=== PATIENT | male | born 1955 | race Caucasian/White ===

== ENCOUNTER 2019-05-01 19:52 | Emergency (ER) | payer OTHER, MEDICARE ==
[2019-05-01] MEDS ORDERED: PREDNISONE 20 MG TABLET PO ONE (22:03)
[2019-05-01] MEDS ORDERED: IPRATROPIUM/ALBUTEROL 0.5-2.5 MG/3 ML AMPUL NEB ONE (22:03)
[2019-05-01] MEDS ORDERED: DOXYCYCLINE HYCLATE 100 MG TABLET PO ONE (22:04)
--- NOTE | 2019-05-01 22:06 | RADIOLOGY REPORT (SQ) ---
EXAM DESCRIPTION: XR CHEST 1 VIEW COMPLETED DATE/TME: 05/01/2019 20:47 CLINICAL HISTORY: 63 years, Male, shortness of breath COMPARISON: None. NUMBER OF VIEWS: 1 TECHNIQUE: Single PA portable view of the chest was obtained. LIMITATIONS: None. FINDINGS: Cardiac mediastinal silhouette within normal limits of size. Post sternotomy wires and CABG surgical clips. Tortuous thoracic aorta. Slightly hazy opacification of the RIGHT perihilar lower lobe may be secondary to subsegmental atelectasis, scarring or developing consolidation. The lungs appear to be clear without discrete focal opacity, pneumothorax or large pleural effusion. Trace pleural effusion cannot be excluded. The visualized bones reveal degenerative change. IMPRESSION: Slightly hazy opacification of the RIGHT perihilar lower lobe may be secondary to subsegmental atelectasis, scarring or developing consolidation. Please correlate with patient clinical findings and consider follow-up for resolution. copyright 2010 [employer]- All Rights Reserved
--- NOTE | 2019-05-01 22:10 | ER Document Report ---
HPI - HPI Patient complains to provider of: wheezing, med refill Time Seen by Provider: 05/01/19 21:58 Onset: Last week Pain Level: Denies Context: Patient presents requesting a med refill for his asthma inhaler. Patient states that he is moved here recently and [facility]. Patient denies any chest pain or shortness of breath. Patient states that his asthma has been flaring up and he does not have any medication. Patient denies any fever. Patient is not wanting to have any lab work or testing performed here tonight. Associated Symptoms: Nonproductive cough. denies: Chest pain, Fever Exacerbated by: Denies Relieved by: Denies Similar symptoms previously: Yes Recently seen / treated by doctor: No - ROS ROS below otherwise negative: Yes Systems Reviewed and Negative: Yes All other systems reviewed and negative - CONSTITUTIONAL Constitutional: DENIES: Fever - EENT EENT: DENIES: Sore Throat, Congestion - NEURO Neurology: DENIES: Headache - CARDIOVASCULAR Cardiovascular: DENIES: Chest pain - RESPIRATORY Respiratory: REPORTS: Coughing - GASTROINTESTINAL Gastrointestinal: DENIES: Abdominal Pain, Nausea, Patient vomiting - MUSCULOSKELETAL Musculoskeletal: DENIES: Back Pain - DERM Skin Color: Normal Skin Problems: None Past Medical History - General Information source: Patient - Social History Smoking Status: Former Smoker Frequency of alcohol use: None Drug Abuse: None Occupation: none Lives with: Family Family History: Reviewed & Not Pertinent - Past Medical History Cardiac Medical History: Reports: Hx Coronary Artery Disease, Hx Hypercholesterolemia, Hx Hypertension Pulmonary Medical History: Reports: Hx Asthma, Hx COPD Past Surgical History: Reports: Hx Cardiac Catheterization Vertical Provider Document - CONSTITUTIONAL Agree With Documented VS: Yes Exam Limitations: No Limitations General Appearance: WD/WN, No Apparent Distress - INFECTION CONTROL TRAVEL OUTSIDE OF THE [place] IN LAST 30 DAYS: No - HEENT HEENT: Atraumatic, Normal ENT Exam, Normocephalic - NECK Neck: Normal Inspection, Supple. negative: Lymphadenopathy-Left, Lymphadenopathy-Right - RESPIRATORY Respiratory: No Respiratory Distress, Wheezing - CARDIOVASCULAR Cardiovascular: Regular Rate, Regular Rhythm, No Murmur. negative: Tachycardia - BACK Back: Normal Inspection - MUSCULOSKELETAL/EXTREMETIES Musculoskeletal/Extremeties: MAEW, FROM - NEURO Level of Consciousness: Awake, Alert, Appropriate Motor/Sensory: No Motor Deficit - DERM Integumentary: Warm, Dry, No Rash Course - Re-evaluation Re-evalutation: 05/01/19 22:09 Patient states that he is only here for refill of his medications. Patient with bilateral wheezing. Offered patient additional evaluation including labs and x- ray. Patient declined stating he only wants a refill of his medicine. Patient is agreeable to stay for nebulizer treatments here. 05/01/19 23:20 Patient with decreased wheezing bilaterally with improved air movement. Patient nontoxic in appearance at this time. Patient reports feeling much better. Patient advised of x-ray findings and concern about possible early developing pneumonia. Patient will be placed on doxycycline and good return precautions were discussed. Patient is agreeable with this plan of care at this time. - Vital Signs Vital signs: Temp Pulse Resp BP Pulse Ox 98.0 F 84 18 133/89 H 95 05/01/19 20:11 05/01/19 20:11 05/01/19 20:11 05/01/19 20:11 05/01/19 20:11 - Diagnostic Test Radiology reviewed: Image reviewed, Reports reviewed Discharge - Discharge Clinical Impression: COPD exacerbation Condition: Good Disposition: HOME, SELF-CARE Instructions: Chronic Obstructive Lung Disease ([facility]) Additional Instructions: Return immediately for any new or worsening symptoms: Worsening shortness of breath, fever, chest pain, lack of improvement, or any concerning symptoms Followup with your primary care provider, call tomorrow to make a followup appointment INHALED BRONCHODILATORS: You have received a treatment of and/or prescription for an inhaled bronchodilator -- a medication which stimulates the airways in the lung to dilate. This improves the flow of air in asthma, bronchitis, and emphysema. These medicines have some similarity to adrenaline, and can cause similar side effects: shakiness, racing heart, and a sense of nervousness. These side effects decrease with time. Contact your doctor if these side effects are severe. Do not over-use the medicine. Too-frequent use of the inhaler may make it ineffective. Call your doctor if the inhaler is not controlling your symptoms at the prescribed doses. STEROID MEDICATION: You have been given an injection of or oral medicine of the cortisone/steroid class. This medication is used to control inflammation or allergy. Adonis t is usually only given for a short period of time, until the acute process subsides. There are usually no side effects from short-term use of cortisone-like medications. Some persons feel an increased sense of well-being and are not sleepy at bedtime. Long-term use of cortisone medications is best avoided, unless required for a severe condition. If your condition does not remit, or relapses after the course of corticosteroid medication, you should consult your physician. ANTIBIOTIC THERAPY: You have been given an antibiotic prescription. It's important that you take all the medication, unless instructed otherwise by your physician. Failure to complete the entire course can result in relapse of your condition. Common side effects of antibiotics include nausea, intestinal cramping, or diarrhea. Women may develop vaginal yeast infections, and babies can get yeast (thrush) in the mouth following the use of antibiotics. Contact your physician if you develop significant side effects from this medication. Allergy to this antibiotic can result in hives, wheezing, faintness, or itching. If symptoms of allergy occur, stop the medication and call your doctor. DOXYCYCLINE: Doxycycline (Vibramycin, Doryx) is an antibiotic of the tetracycline family. This type of drug is useful for infections of the respiratory tract and genital tract, and is sometimes used for intestinal infections. Unlike most tetracyclines, doxycycline can be taken with food. It is longer acting, and (usually) less prone to side effects than regular tetracycline. Tetracycline antibiotics can stain immature teeth and SHOULD NOT BE TAKEN BY CHILDREN, NURSING MOTHERS, OR WOMEN. Tetracyclines can make you more prone to sunburn. Abdominal cramping, nausea, and diarrhea are occasional side effects. Women may experience vaginal yeast infections. Call the doctor at once if you develop hives, itching, shortness of breath, or lightheadedness. USE OF ACETAMINOPHEN (Tylenol): Acetaminophen may be taken for pain relief or fever control. It's much safer than aspirin, offering a wider range of "safe" dosages. It is safe during . Some brand names are Tylenol, Panadol, Datril, Anacin 3, Tempra, and Liquiprin. Acetaminophen can be repeated every four hours. The following are maximum recommended dosages: >89 pounds or adults 650 mg to 900 mg Acetaminophen can be repeated every four hours. Maximum dose not to exceed 4000 mg a day. FOLLOW-UP CARE: If you have been referred to a physician for follow-up care, call the physicians office for an appointment as you were instructed or within the next two days. If you experience worsening or a significant change in your symptoms, notify the physician immediately or return to the Emergency Department at any time for re-evaluation. Prescriptions: Albuterol Sulfate [Ventolin 0.083% Neb 2.5 mg/3 ml Ampul] 1 vial NEB Q4 PRN #30 vial PRN Reason: Doxycycline Hyclate 100 mg PO BID #20 capsule Prednisone [Deltasone 20 mg Tablet] 2 tab PO DAILY 5 Days tablet Referrals: [facility] [Provider Group] - Follow up as needed
[2019-05-01] MEDS ORDERED: ALBUTEROL SULFATE HFA (90 MCG/PUFF) 8 GM MDI (1 MDI/ER DISP) IH ONE (22:26)
[2019-05-01] MEDS: ALBUTEROL SULFATE 0.083% NEB 2.5 MG/3 ML AMPUL NEB SCH ×2 (22:42→23:05)
[2019-05-01 23:34] VITALS: BP 134/87
== END 2019-05-01 23:34 | disposition home or self-care (01) ==
LOC: EDBD → ER 19:52
DX: J44.1 Chronic obstructive pulmonary disease with (acute) exacerbation (principal); R05 Cough; J02.9 Acute pharyngitis, unspecified; R09.81 Nasal congestion; Z87.891 Personal history of nicotine dependence; I25.10 Atherosclerotic heart disease of native coronary artery without angina pectoris; I10 Essential (primary) hypertension
CPT/HCPCS: 94640; 99282; 71045; J7512; J3490; J7620

== ENCOUNTER 2020-09-23 16:54 | Observation (INO) | payer OTHER, MEDICARE ==
--- NOTE | 2020-09-23 17:11 | ER Document Report ---
ED Medical Screen (RME) - General Chief Complaint: Altered Mental Status Stated Complaint: SHOULDER PAIN Time Seen by Provider: 09/23/20 16:59 Primary Care Provider: MARICARMEN,ERIK [Primary Care Provider] - Follow up as needed Mode of Arrival: Ambulatory Information source: Patient, Relative Notes: Patient presents with family member states that patient has not been acting himself and that his gait has been off since around 3 PM today. Patient had difficulty describing exactly what the change in rotation reports. He does state the patient indicated that later patient was attempting to reach for an object that was normal on the floor. Patient complains of generalized fatigue and sore throat. Patient without any headache, chest pain or fever. No recent illness. Patient has a history of asthma, MS with bypass, asthma and COPD. During the course of the triage, family member states that patient has started to act normal again and gait seems to be improving at this time. I have greeted and performed a rapid initial assessment of this patient. A comprehensive ED assessment and evaluation of the patient, analysis of test results and completion of the medical decision making process will be conducted by additional ED providers. TRAVEL OUTSIDE OF THE [place] IN LAST 30 DAYS: No - Related Data Allergies/Adverse Reactions: No Known Drug Allergies Allergy (Verified 05/01/19 19:59) Past Medical History - Past Medical History Cardiac Medical History: Reports: Hx Coronary Artery Disease, Hx Hypercholesterolemia, Hx Hypertension Pulmonary Medical History: Reports: Hx Asthma, Hx COPD Renal/ Medical History: Denies: Hx Peritoneal Dialysis Past Surgical History: Reports: Hx Cardiac Catheterization, Hx Open Heart Surgery, Hx Orthopedic Surgery Physical Exam - Vital signs Vitals: Temp Pulse Resp BP Pulse Ox 97.6 F 101 H 24 H 147/94 H 93 09/23/20 17:03 09/23/20 17:03 09/23/20 17:03 09/23/20 17:03 09/23/20 17:03 - General General appearance: Alert - Neurological Orientation: AAOx4 Meme Coma Scale Eye Opening: Spontaneous [place] Coma Scale Verbal: Oriented Meme Coma Scale Motor: Obeys Commands Meme Coma Scale Total: 15 Cranial nerves: No: Facial palsy Motor strength normal: LUE, RUE, LLE, RLE Course - Vital Signs Vital signs: Temp Pulse Resp BP Pulse Ox 97.6 F 101 H 24 H 147/94 H 93 09/23/20 17:03 09/23/20 17:03 09/23/20 17:03 09/23/20 17:03 09/23/20 17:03 Doctor's Discharge - Discharge [facility] - Follow up as needed
--- NOTE | 2020-09-23 17:36 | RADIOLOGY REPORT (SQ) ---
EXAM DESCRIPTION: CT HEAD WITHOUT IMAGES COMPLETED DATE/TIME: 09/23/2020 5:23 pm REASON FOR STUDY: AMS, gait change COMPARISON: None. TECHNIQUE: Axial images acquired through the brain without intravenous contrast. Images reviewed wi th bone, brain and subdural windows. Additional sagittal and coronal reconstructions were generated. Images stored on PACS. All CT scanners at this facility use dose modulation, iterative reconstruction, and/or weight based d osing when appropriate to reduce radiation dose to as low as reasonably achievable (ALARA). [facility]: Dose Right [facility]: CareDose [facility]: Dose Right [facility]: Teradose 4D [facility]: [employer] RADIATION DOSE: CT Rad equipment meets quality standard of care and radiation dose reduction techniq ues were employed. CTDIvol: 53.2 mGy. DLP: 1097 mGy-cm. mGy. LIMITATIONS: None. FINDINGS: VENTRICLES: Normal size and contour. CEREBRUM: No masses. No hemorrhage. No midline shift. No evidence for acute infarction. Areas of l ow density in the white matter most likely chronic small vessel ischemic changes. CEREBELLUM: No masses. No hemorrhage. No alteration of density. No evidence for acute infarction. EXTRAAXIAL SPACES: No fluid collections. No masses. ORBITS AND GLOBE: No intra- or extraconal masses. Normal contour of globe without masses. CALVARIUM: No fracture. PARANASAL SINUSES: Small mucous retention cyst in the left maxillary sinus. SOFT TISSUES: No mass or hematoma. OTHER: No other significant finding. IMPRESSION: Chronic microvascular ischemia with no acute intracranial imaging finding. Mild left ma xillary sinus disease. EVIDENCE OF ACUTE STROKE: NO. COMMENT: Quality ID # [id number]: Final reports with documentation of one or more dose reduction techniques (e.g., Automated exposure control, adjustment of the mA and/or kV according to patient size, use of iterative reconstruction technique) TECHNICAL DOCUMENTATION: JOB ID: [id number] 2010 [employer] All Rights Reserved Reading location - IP/workstation name: [email or web address]
--- NOTE | 2020-09-23 17:37 | RADIOLOGY REPORT (SQ) ---
EXAM DESCRIPTION: CHEST SINGLE VIEW IMAGES COMPLETED DATE/TIME: 09/23/2020 5:22 pm REASON FOR STUDY: AMS COMPARISON: 05/01/2019 EXAM PARAMETERS: NUMBER OF VIEWS: One view. TECHNIQUE: Single frontal radiographic view of the chest acquired. RADIATION DOSE: NA LIMITATIONS: None. FINDINGS: LUNGS AND PLEURA: No opacities, masses or pneumothorax. No pleural effusion. MEDIASTINUM AND HILAR STRUCTURES: No masses. Contour normal. HEART AND VASCULAR STRUCTURES: Heart normal in size. Normal vasculature. BONES: No acute findings. HARDWARE: Sternotomy wires. Surgical clips. OTHER: No other significant finding. IMPRESSION: NO ACUTE RADIOGRAPHIC FINDING IN THE CHEST. TECHNICAL DOCUMENTATION: JOB ID: [id number] 2010 [employer]- All Rights Reserved Reading location - IP/workstation name: [email or web address]
[2020-09-23 17:41] LABS: ABSOLUTE EOSINOPHILS # (AUTO) 0.3 10^3/uL (0.0-0.6); ABSOLUTE LYMPHOCYTES (AUTO) 1.5 10^3/uL (0.5-4.7); ABSOLUTE MONOCYTES (AUTO) 0.6 10^3/uL (0.1-1.4); ABSOLUTE NEUT (AUTO) 2.8 10^3/uL (1.7-8.2); BASOPHILS % (AUTO) 0.9 % (0-2); EOSINOPHILS % (AUTO) 5.2 % (0-6); HEMATOCRIT 42.6 % (37.9-51.0); HEMOGLOBIN 14.5 g/dL (13.5-17.0); LYMPHOCYTES % (AUTO) 28.3 % (13-45); MEAN CORPUSCULAR HEMOGLOBIN 30.3 pg (27.0-33.4); MEAN CORPUSCULAR HGB CONC 34.1 g/dL (32.0-36.0); MEAN CORPUSCULAR VOLUME 89 fl (80-97); MONOCYTES % (AUTO) 11.2 % (3-13); PLATELET COUNT 196 10^3/uL (150-450); RED BLOOD COUNT 4.79 10^6/uL (4.35-5.55); RED CELL DISTRIBUTION WIDTH 13.6 % (11.5-14.0); SEGMENTED NEUTROPHILS % (AUTO) 54.4 % (42-78); TOTAL CELLS COUNTED % (AUTO) 100 %; WHITE BLOOD COUNT 5.2 10^3/uL (4.0-10.5)
[2020-09-23 17:45] LABS: PARTIAL THROMBOPLASTIN TIME 26.7 SEC (23.5-35.8); PROTHROMBIN TIME 12.4 SEC (11.4-15.4)
[2020-09-23 18:00] LABS: ALBUMIN 4.5 g/dL (3.5-5.0); ALKALINE PHOSPHATASE 80 U/L (38-126); ANION GAP 10 (5-19); ASPARTATE AMINO TRANSFERASE 27 U/L (17-59); BILIRUBIN,DIRECT 0.2 mg/dL (0.0-0.4); BILIRUBIN,TOTAL 0.8 mg/dL (0.2-1.3); BLOOD UREA NITROGEN 14 mg/dL (7-20); CALCIUM 9.4 mg/dL (8.4-10.2); CARBON DIOXIDE 27 mmol/L (22-30); CHLORIDE 105 mmol/L (98-107); CREATINE KINASE 150 U/L (55-170); GLUCOSE 101 mg/dL (75-110); POTASSIUM 4.1 mmol/L (3.6-5.0); TOTAL PROTEIN 7.6 g/dL (6.3-8.2)
[2020-09-23 18:11] LABS: CREATINE KINASE MB 6.45 ng/mL (<4.55)
[2020-09-23 18:12] LABS: TROPONIN I < 0.012 ng/mL
[2020-09-23 18:40] LABS: APPEARANCE,URINE CLEAR; BILIRUBIN,URINE NEGATIVE (NEGATIVE); COLOR,URINE YELLOW; GLUCOSE, URINE NEGATIVE (NEGATIVE); KETONES,URINE NEGATIVE (NEGATIVE); LEUKOCYTE ESTERASE,URINE NEGATIVE (NEGATIVE); NITRITE,URINE NEGATIVE (NEGATIVE); PROTEIN,URINE NEGATIVE (NEGATIVE); URINE SPECIFIC GRAVITY 1.015; UROBILINOGEN,URINE NEGATIVE mg/dL (<2.0)
--- NOTE | 2020-09-23 19:16 | ER Document Report ---
ED Neuro Symptoms/Deficit - General Chief Complaint: S/S of Possible Stroke Stated Complaint: SHOULDER PAIN Time Seen by Provider: 09/23/20 16:59 Mode of Arrival: Ambulatory TRAVEL OUTSIDE OF THE [place] IN LAST 30 DAYS: No - HPI Notes: Patient is a 65-year-old male who presents with altered mental status. History is mostly provided by the patient's son and the patient. Patient states he felt fine yesterday. He woke up this morning and had pain to his right shoulder so he took some [id number] medications. Patient's called the son in the room around 3 PM and stated that the patient was not acting normally. Exact time of onset is not known but was before 3 PM. Son states he had an abnormal gait. He was also reaching for something on the floor that was not there. He was having trouble holding a conversation. Symptoms resolved when patient arrived to the ER. He is no longer having any shoulder pain either. Patient is alert and oriented x3 and ambulatory on my evaluation. NIH is 0. Patient is not a TPA candidate due to low NIH and resolving symptoms. - Related Data Allergies/Adverse Reactions: No Known Drug Allergies Allergy (Verified 09/23/20 17:15) Home Medications: coreg, Nitro, atorovastatin Past Medical History - General Information source: Patient, Relative - Social History Smoking Status: Former Smoker Drug Abuse: Marijuana Family History: Reviewed & Not Pertinent Patient has homicidal ideation: No - Past Medical History Cardiac Medical History: Reports: Hx Coronary Artery Disease, Hx Hypercholesterolemia, Hx Hypertension Pulmonary Medical History: Reports: Hx Asthma, Hx COPD Renal/ Medical History: Denies: Hx Peritoneal Dialysis Past Surgical History: Reports: Hx Cardiac Catheterization, Hx Open Heart Surgery, Hx Orthopedic Surgery Review of Systems - Review of Systems Notes: CONSTITUTIONAL: No fever, fatigue or weight loss. SKIN: No rash. HENT: No congestion EYES: No recent vision problems or eye pain. CARDIOVASCULAR: No chest pain or edema. RESPIRATORY: No cough, shortness of breath, congestion, or wheezing. GASTROINTESTINAL: No abdominal pain, nausea, vomiting, bloody stools or diarrhea. MUSCULOSKELETAL: Positive for right shoulder pain that resolved. NEUROLOGIC: No seizures. No focal weakness or sensory changes. Positive for confusion and gait disturbance which resolved. Positive for chronic headaches. HEMATOLOGIC: No unusual bruising or bleeding. PSYCHIATRIC: No depression or anxiety. Physical Exam - Vital signs Vitals: Pulse Resp BP Pulse Ox 87 18 147/94 H 90 L 09/23/20 16:55 09/23/20 16:55 09/23/20 16:55 09/23/20 16:55 - General General appearance: Appears well, Alert Notes: VITAL SIGNS: Within normal limits. GENERAL: No acute distress, non-toxic appearance. HEAD: Normal with no signs of head trauma. EYES: EOMI, conjunctiva normal, no discharge. EARS: Hearing grossly intact. NOSE: Normal. NECK: Normal range of motion, no tenderness, supple, no lymphadenopathy, No adenopathy, no JVD. CHEST: Clear breath sounds bilaterally. No wheezes, rales, or rhonchi. CARDIAC: Regular rate and rhythm. S1 and S2, without murmurs, gallops, or rubs. VASCULAR: No Edema. Peripheral pulses normal in upper extremities. ABDOMEN: Normal and soft MUSCULOSKELETAL: Good range of motion of all major joints. Extremities without clubbing, cyanosis or edema. NEUROLOGICAL: Alert and oriented x 3. No focal sensory or strength deficits. Speech normal. Follows commands appropriately. Gait is normal. NIH is 0. PSYCHIATRIC: Normal Affect, judgement and mood. SKIN: Normal appearance with no rashes or lesions. Course - Re-evaluation Re-evalutation: 09/23/20 19:[address] head was unremarkable. Lab work was also reviewed. Possible patient could have had a TIA. I discussed possibility of admission for MRI and further work-up and they are in agreement. I also discussed with the hospitalist. 09/23/20 21:23 - Vital Signs Vital signs: Temp Pulse Resp BP Pulse Ox 97.6 F 83 20 140/89 H 91 L 09/23/20 17:03 09/23/20 17:08 09/23/20 20:01 09/23/20 20:01 09/23/20 20:01 - Laboratory Results Result Diagrams: 09/23/20 17:30 09/23/20 17:30 Laboratory Results Interpreted: 09/23/20 17:30 CK-MB (CK-2) 6.45 H Critical Laboratory Results Reviewed: No Critical Results - Radiology Results Critical Radiology Results Reviewed: No Critical Results - EKG Interpretation by Me EKG shows normal: Sinus rhythm Rate: Normal Rhythm: NSR When compared to previous EKG there are: Previous EKG unavailable Additional EKG results interpreted by me: 09/23/20 20:07 Sinus rhythm at a rate of 93. QTc 473. PVCs present. No acute ST changes. No previous EKG available for comparison. Discharge - Discharge Clinical Impression: Stroke-like symptoms Altered mental status Qualifiers: Altered mental status type: unspecified Qualified Code(s): R41.82 - Altered mental status, unspecified Condition: Stable Disposition: ADMITTED OBSERVATION Admitting Provider: [facility] Admitted: [facility]
[2020-09-23] MEDS ORDERED: ACETAMINOPHEN 325 MG TABLET PO PRN (20:46)
[2020-09-23] MEDS ORDERED: ALBUTEROL SULFATE 0.083% NEB 2.5 MG/3 ML AMPUL NEB PRN (20:46)
--- NOTE | 2020-09-23 21:25 | ER Document Report ---
ED NIH Stroke Scale - NIH Stroke Scale *: 1. NIH scale should be completed with appropriate accompanying assessment tools. *: 2. The NIH should reflect what the patient is capable of doing and should not be coached by the clinician. 1a. Level of Consciousness: 0=Alert;keenly responsive -: 1=Drowsy -: 2=Obtunded -: 3=Coma/unresponsive or reflex to noxious stimuli. 1a. Responses: 0 1b. Orientation Questions: a. What month is it? -: b. How old are you? -: 0=Answers both questions correctly. -: 1=Answers one question correctly or patient is intubated or has orotracheal trauma. -: 2=Answers neither question correctly. 1b. Responses: 0 1c. Response to commands: a. Open and close eyes? -: b. Director Of Mechanical Engineering and release hand? -: Credit is given despite weakness. Demonstration of task is permitted. Substitute command if hands cannot be used. -: 0=Performs both tasks correctly -: 1=Performs one task correctly -: 2=Performs neither task correctly 1c. Responses: 0 2. Gaze: Establish eye contact and instruct patient to "Follow my finger" -: 0=Normal -: 1=Partial gaze palsy. Gaze is abnormal in one or both eyes, but where forced deviation or total gaze paresis is not present. -: 2=Forced deviation or total gaze paresis. 2. Responses: 0 3. Visual Benjamin: Sees fingers in all four quadrants. -: 0=No visual loss. -: 1=Partial hemianopsia. -: 2=Complete hemianopsia. -: 3=Bilateral hemianopsia (including Cortical blindness) 3. Responses: 0 4. Facial Movement: Instruct patient to: -: a. Show me your teeth -: b. Raise your eyebrows -: c. Close your eyes -: d. Smile -: 0=Normal symmetrical movement -: 1=Minor paralysis (flattened nasolabial fold, asymmetry on smiling). -: 2=Partial paralysis (total or near total paralysis of lower face). -: 3=Complete paralysis of upper and lower face 4. Responses: 0 5. Motor functions (left arm): Alternate sides and extend each arm with palms down (90 degrees if sitting or 45 degrees for supine). -: 0=No drift;limb holds for full 10 seconds. -: 1=Drift; limb holds but drifts down before full 10 seconds, but does not hit bed. -: 2=Some effort against gravity; limb cannot get to or maintain position. -: 3=No effort against gravity; limb falls. -: 4=No movement. -: UN=Amputation, joint fusion, explain in comments. 5. Responses (left arm): 0 5. Motor Functions (right arm): Alternate sides and extend each arm with palms down (90 degrees if sitting or 45 degrees for supine). -: 0=No drift;limb holds for full 10 seconds. -: 1=Drift; limb holds but drifts down before full 10 seconds, but does not hit bed. -: 2=Some effort against gravity; limb cannot get to or maintain position. -: 3=No effort against gravity; limb falls. -: 4=No movement. -: UN=Amputation, joint fusion, explain in comments. 5. Responses (right arm): 0 6. Motor Functions (left leg): With patient lying supine, alternate sides and extend each leg (30 degrees always while supine). -: 0=No drift, leg holds position for full 5 seconds -: 1=Drift; leg falls before full 5 seconds but does not hit bed. -: 2=Some effort against gravity, leg falls to bed but some effort against gravity. -: 3=No effort against gravity, leg falls to bed immediately. -: 4=No movement. -: UN=Amputation, joint fusion; explain in comments. 6. Responses (left leg): 0 6. Motor Functions (right leg): With patient lying supine, alternate sides and extend each leg (30 degrees always while supine). -: 0=No drift, leg holds position for full 5 seconds -: 1=Drift; leg falls before full 5 seconds but does not hit bed. -: 2=Some effort against gravity, leg falls to bed but some effort against gravity. -: 3=No effort against gravity, leg falls to bed immediately. -: 4=No movement. -: UN=Amputation, joint fusion; explain in comments. 6. Responses (right leg): 0 7. Limb Ataxia: With eyes open instruct patient to: -: a. "Touch your finger to your nose". -: b. "Touch your heel to your gresham" -: 0=Absent -: 1=Present in one limb. -: 2=Present in two limbs. -: UN=Amputation or joint fusion; explain in comments. 7. Responses: 0 8. Sensory: Test sensation using pinprick or noxious stimuli. Test as many body parts as possible. -: 0=Normal;no sensory loss -: 1=Mile to moderate sensory loss (patient feels pin prick but is less sharp on affected side). -: 2=Severe or total sensory loss. 8. Responses: 0 9. Best Language: Instruct patient to: -: a. "Describe what you see in this picture." -: b. "Name the items in this picture." -: c. "Read these sentences." -: 0=No aphasia, normal -: 1=Mild to moderate aphasia. -: 2=Severe aphasia -: 3=Mute, global aphasia, no usable speech or auditory comprehension. 9. Responses: 0 10. Articulation, Dysarthia: Instruct patient to: -: "Read these words" or "Repeat these words" -: 0=Normal -: 1=Mild to moderate; patient may slur some words but can be understood without difficulty. -: 2=Severe; patients speech so slurred as to be unintelligible in the absence of dysphasia. -: UN=Intubated or other physical barrier, explain in comments. 10. Responses: 0 11. Extinction or inattention: 0=No abnormality -: 1= Visual, tactile, auditory, spatial, or personal inattention or extinction to bilateral simulation in one or the sensory modalities. -: 2=Profound jeanine-inattention or jeanine-inattention to more than one modality; does not recognize own hand. 11. Responses: 0 Total Score: 0
[2020-09-23] MEDS ORDERED: TRAMADOL HCL 50 MG TABLET PO ONE (21:45)
[2020-09-23] MEDS ORDERED: ATORVASTATIN CALCIUM 80 MG TABLET PO SCH (22:00)
--- NOTE | 2020-09-23 22:40 | RADIOLOGY REPORT (SQ) ---
MRI of the brain without intravenous contrast: 09/23/2020 9:36 PM [employer] INDICATION: 65-year-old patient with TIA, concern for stroke COMPARISON: CT the head from 09/23/2020 TECHNIQUE: Sagittal T1; axial diffusion, ADC, T2, FLAIR, gradient echo images through the brain were obtained without intravenous contrast administered. FINDINGS: There is mild prominence of the cerebral sulci and ventricles, suggestive of cerebral atrophy. Mild nonspecific periventricular hyperintense signal is also seen, which may reflect chronic microvascular ischemia. No obvious restricted diffusion is seen. The cervicomedullary junction is unremarkable. The visualized orbits also appear unremarkable. No extra-axial fluid collection is seen. No midline shift or mass effect is seen. The visualized vascular flow voids appear normal. The cerebellopontine angles appear normal. No abnormal signal is seen to suggest acute hemorrhage. There are scattered punctate areas of increased susceptibility, most pronounced within the occipital and parietal lobes. These are seen throughout the subcortical white matter. The hernandez-white matter differentiation is normal. No focal signal abnormality is seen. There is minimal mucoperiosteal thickening of the ethmoid sinuses. IMPRESSION: 1. No acute intracranial process is seen. 2. Mild cerebral atrophy and periventricular white matter changes are seen. 3. There are punctate areas of scattered susceptibility. This can be seen with amyloid angiopathy, less likely cavernous malformations or trauma.
--- NOTE | 2020-09-23 23:51 | PDOC H&P ---
History of Present Illness Admission Date/PCP: 09/23/20 20:34 HARDEEP LUCAS PA-C Patient complains of: Abnormal speech and confusion History of Present Illness: JOSE MERA is a 65 year old male The patient does not have any documented history of CVA or TIA. About a year or year and a half ago the patient had a similar episode what happened today but at that time he did not seek medical attention. He was doing well till around noon when his family noticed his speech became abnormal and he is not acting right. He seemed to be confused with significant speech difficulty. He was able to walk. Eventually came to the emergency department. His symptoms were rapidly improving and by the time he was evaluated they almost completely resolved. The diagnosis was unclear, he was not a candidate for thrombolytic treatment. His work-up in the emergency department was essentially unremarkable. When I arrived to see him he was fully alert, oriented. He appeared very slightly confused which can be even a normal variant. His speech was normal. According to his son he was still not completely back to his baseline. Denies any headache. His only complaint was his chronic back pain. He was cooperative, pleasant. Past Medical History Cardiac Medical History: Reports: Coronary Artery Disease, Hyperlipidema, Hypertension Pulmonary Medical History: Reports: Asthma, Chronic Obstructive Pulmonary Disease (COPD) Endocrine Medical History: Denies: Diabetes Mellitus Type 2 Malignancy Medical History: Reports: None GI Medical History: Reports: Other - Has a left inguinal hernia for years. Psychiatric Medical History: Denies: None, Alcohol Dependency, Attention Deficit Hyperactivity Disorder, Bipolar Disorder, Dementia, Depression, General Anxiety Disorder, Personality Disorder, Post Traumatic Stress Disorder, Schizoaffective Disorder, Substance Abuse, Tobacco Dependency, Other Infectious Medical History: Reports: None Past Surgical History Past Surgical History: Reports: Cardiac Catheterization, Coronary Artery Bypass Graft, Orthopedic Surgery Social History Lives with: Family Smoking Status: Former Smoker Family History Family History: CAD Parental Family History Reviewed: Yes Children Family History Reviewed: Yes Sibling(s) Family History Reviewed.: Yes Medication/Allergy Allergies/Adverse Reactions: No Known Drug Allergies Allergy (Verified 09/23/20 17:15) Review of Systems Constitutional: ABSENT: chills, fever(s), headache(s), weight gain, weight loss Eyes: ABSENT: visual disturbances Ears: ABSENT: hearing changes Cardiovascular: ABSENT: chest pain, dyspnea on exertion, edema, orthropnea, palpitations Respiratory: ABSENT: cough, hemoptysis Gastrointestinal: PRESENT: other - Chronic left inguinal hernia. ABSENT: abdominal pain, constipation, diarrhea, hematemesis, hematochezia, nausea, vomiting Genitourinary: ABSENT: difficulty urinating, dysuria Musculoskeletal: PRESENT: back pain Neurological: PRESENT: abnormal speech, confusion Physical Exam Vital Signs: Temp Pulse Resp BP Pulse Ox 97.6 F 80 26 H 137/98 H 99 09/23/20 17:03 09/23/20 22:00 09/23/20 22:19 09/23/20 22:00 09/23/20 22:00 Intake & Output 09/22/20 09/23/20 09/24/20 06:59 06:59 06:59 Weight 88.1 kg General appearance: PRESENT: no acute distress Head exam: PRESENT: atraumatic Eye exam: PRESENT: conjunctiva pink, EOMI, PERRLA. ABSENT: scleral icterus Ear exam: PRESENT: normal external ear exam Mouth exam: PRESENT: moist, tongue midline Neck exam: ABSENT: carotid bruit, JVD, lymphadenopathy, thyromegaly Respiratory exam: PRESENT: clear to auscultation lyn. ABSENT: rales, rhonchi, wheezes Cardiovascular exam: PRESENT: RRR. ABSENT: diastolic murmur, rubs, systolic murmur Pulses: PRESENT: normal dorsalis pedis pul GI/Abdominal exam: PRESENT: normal bowel sounds, soft, tenderness - Left in guinal hernia, reducible with minimal tenderness.. ABSENT: distended, guarding, mass, organolmegaly, rebound Rectal exam: PRESENT: deferred Extremities exam: PRESENT: full ROM. ABSENT: calf tenderness, clubbing, pedal edema Neurological exam: PRESENT: alert, oriented to person, oriented to place, oriented to time, oriented to situation, other - Very slight confusion, hard to tell. Cooperative. Able to engage in any conversation. Able to walk without any help. Speech is clear. Normal coordination. No focal weakness. Normal sensation. Skin exam: PRESENT: dry, intact, warm. ABSENT: cyanosis, rash Results Laboratory Results: 09/23/20 17:30 09/23/20 17:30 09/23/20 09/23/20 09/23/20 17:30 17:30 18:27 WBC 5.2 RBC 4.79 Hgb 14.5 Hct 42.6 MCV 89 MCH 30.3 MCHC 34.1 RDW 13.6 Plt Count 196 Seg Neutrophils % 54.4 Sodium 141.5 Potassium 4.1 Chloride 105 Carbon Dioxide 27 Anion Gap 10 BUN 14 Creatinine 0.90 Est GFR ( Amer) > 60 Glucose 101 Calcium 9.4 Total Bilirubin 0.8 AST 27 Alkaline Phosphatase 80 Total Protein 7.6 Albumin 4.5 Urine Color YELLOW Urine Appearance CLEAR Urine pH 6.0 Ur Specific [place] 1.015 Urine Protein NEGATIVE Urine Glucose (UA) NEGATIVE Urine Ketones NEGATIVE Urine Blood NEGATIVE Urine Nitrite NEGATIVE Ur Leukocyte Esterase NEGATIVE Urine WBC (Auto) 0 Urine RBC (Auto) 1 09/23/20 09/23/20 09/23/20 17:30 17:30 21:27 Creatine Kinase 150 CK-MB (CK-2) 6.45 H Troponin I < 0.012 0.015 Impressions: Head MRI 09/23/20 00:00 IMPRESSION: 1. No acute intracranial process is seen. 2. Mild cerebral atrophy and periventricular white matter changes are seen. 3. There are punctate areas of scattered susceptibility. This can be seen with amyloid angiopathy, less likely cavernous malformations or trauma. Chest X-Ray 09/23/20 17:08 IMPRESSION: NO ACUTE RADIOGRAPHIC FINDING IN THE CHEST. Head CT 09/23/20 17:08 IMPRESSION: Chronic microvascular ischemia with no acute intracranial imaging finding. Mild left maxillary sinus disease. EVIDENCE OF ACUTE STROKE: NO. Assessment and Plan - Diagnosis (1) Stroke-like symptoms Is this a current diagnosis for this admission?: Yes Plan: I believe the most likely explanation of this event is either TIA or a small stroke. CT scan of the head was unremarkable. MRI was ordered. The patient was placed in observation. The patient was not a candidate for thrombolytic treatment because of uncertainty of the diagnosis and rapidly resolving symptoms. He is going to echocardiogram, carotid ultrasound. Continue lipid-lowering medication. He is on aspirin and Plavix for coronary artery disease, continue antiplatelet therapy. DVT prophylaxis. He is going to be evaluated by speech, occupational, physical therapy. Most likely he can be discharged home tomorrow. (2) CAD (coronary artery disease) Qualifiers: Coronary Disease-Associated Artery/Lesion type: bypass graft [place] vs. transplanted heart: [place] heart Associated angina: without angina Qualified Code(s): I25.810 - Atherosclerosis of coronary artery bypass graft(s) without angina pectoris Is this a current diagnosis for this admission?: Yes Plan: No sign of any acute cardiac problem. Continue dual antiplatelet therapy. (3) Hypertension Qualifiers: Hypertension type: essential hypertension Qualified Code(s): I10 - Essential (primary) hypertension Is this a current diagnosis for this admission?: Yes Plan: He is taking 1 single blood pressure medication, cannot recall the name. He is taking it once a day and he took it this morning. Once he brings in his medication we going to resume it for tomorrow. His blood pressure is stable, excessive blood pressure lowering should be avoided. - Plan Summary Summary: The patient was placed in observation to intermediate care unit because of strokelike symptoms may representing TIA or a small stroke. MRI is being ordered. Stroke work-up was initiated. The patient is stable and his symptoms resolved or almost completely resolved. - Time Time Spent with patient: 35 or more minutes Medications reviewed and adjusted accordingly: Yes Anticipated Discharge Disposition: Home, Self Care Anticipated Discharge Timeframe: within 24 hours - Inpatient Certification Medical Necessity: Significant Comorbidiites Make Outpatient Treatment Too Risky, Need For Continuous Telemetry Monitoring, Risk of Complication if Not Cared For in Hospital
[2020-09-24 02:09] LABS: URINE AMPHETAMINES SCREEN NEGATIVE; URINE BARBITURATES SCREEN NEGATIVE; URINE BENZODIAZEPINES SCREEN NEGATIVE; URINE COCAINE SCREEN NEGATIVE; URINE METHADONE SCREEN NEGATIVE; URINE PHENCYCLIDINE SCREEN NEGATIVE
[2020-09-24 02:14] LABS: URINE MARIJUANA (THC) SCREEN UNCONFIRMED POSITIVE
[2020-09-24 04:38] LABS: ABSOLUTE EOSINOPHILS # (AUTO) 0.3 10^3/uL (0.0-0.6); ABSOLUTE LYMPHOCYTES (AUTO) 1.8 10^3/uL (0.5-4.7); ABSOLUTE MONOCYTES (AUTO) 0.7 10^3/uL (0.1-1.4); ABSOLUTE NEUT (AUTO) 3.4 10^3/uL (1.7-8.2); BASOPHILS % (AUTO) 0.7 % (0-2); EOSINOPHILS % (AUTO) 5.3 % (0-6); HEMATOCRIT 43.2 % (37.9-51.0); HEMOGLOBIN 14.8 g/dL (13.5-17.0); LYMPHOCYTES % (AUTO) 28.6 % (13-45); MEAN CORPUSCULAR HEMOGLOBIN 30.4 pg (27.0-33.4); MEAN CORPUSCULAR HGB CONC 34.2 g/dL (32.0-36.0); MEAN CORPUSCULAR VOLUME 89 fl (80-97); MONOCYTES % (AUTO) 10.9 % (3-13); PLATELET COUNT 177 10^3/uL (150-450); RED BLOOD COUNT 4.86 10^6/uL (4.35-5.55); RED CELL DISTRIBUTION WIDTH 13.6 % (11.5-14.0); SEGMENTED NEUTROPHILS % (AUTO) 54.5 % (42-78); TOTAL CELLS COUNTED % (AUTO) 100 %; WHITE BLOOD COUNT 6.2 10^3/uL (4.0-10.5)
[2020-09-24 04:58] LABS: ALBUMIN 4.3 g/dL (3.5-5.0); ALKALINE PHOSPHATASE 80 U/L (38-126); ANION GAP 8 (5-19); ASPARTATE AMINO TRANSFERASE 28 U/L (17-59); BILIRUBIN,DIRECT 0.1 mg/dL (0.0-0.4); BILIRUBIN,TOTAL 0.9 mg/dL (0.2-1.3); BLOOD UREA NITROGEN 12 mg/dL (7-20); CALCIUM 9.2 mg/dL (8.4-10.2); CARBON DIOXIDE 27 mmol/L (22-30); CHLORIDE 104 mmol/L (98-107); CHOLESTEROL 228.13 mg/dL (0-200); GLUCOSE 106 mg/dL (75-110); POTASSIUM 4.1 mmol/L (3.6-5.0); TOTAL PROTEIN 7.5 g/dL (6.3-8.2); TRIGLYCERIDES 129 mg/dL (<150)
[2020-09-24 05:09] LABS: DIRECT LDL 168 mg/dL (<100)
[2020-09-24 08:41] LABS: FREE T3 3.02 pg/mL (2.77-5.27); FREE T4 (FREE THYROXINE) 0.36 ng/dL (0.78-2.19)
[2020-09-24] MEDS ORDERED: ENOXAPARIN SODIUM INJ 40 MG/0.4 ML DISP.SYRIN SUBCUT SCH (10:00)
[2020-09-24] MEDS ORDERED: ASPIRIN 81 MG TABLET, ENT COATED PO SCH (10:00)
[2020-09-24] MEDS ORDERED: CLOPIDOGREL BISULFATE 75 MG TABLET PO SCH (10:00)
[2020-09-24] MEDS ORDERED: IPRATROPIUM/ALBUTEROL 0.5-2.5 MG/3 ML AMPUL NEB PRN (11:03)
--- NOTE | 2020-09-24 12:16 | RADIOLOGY REPORT (SQ) ---
EXAM DESCRIPTION: CAROTID DOPPLER IMAGES COMPLETED DATE/TIME: 09/24/2020 12:01 pm REASON FOR STUDY: TIA versus CVA COMPARISON: None. TECHNIQUE: Grayscale ultrasound, Doppler velocity and spectra, and color Doppler images acquired of the extra-cranial carotid and vertebral arteries. Images stored on PACS. LIMITATIONS: None. FINDINGS: RIGHT CAROTID CCA Velocities: Within normal limits. ICA Velocities Peak systolic 52 cm/s. End diastolic 24 cm/s. Proximal ICA/CCA peak systolic ratio 0.88 . Small amount soft plaque. LEFT CAROTID CCA Velocities: Within normal limits. ICA Velocities Peak systolic 70 cm/s. End diastolic 26 cm/s. Proximal ICA/CCA peak systolic ratio 1.46. There is soft plaque in the bulb and proximal ICA. VERTEBRAL ARTERIES: Antegrade flow. Normal waveforms. SUBCLAVIAN ARTERIES: No finding. OTHER: No other significant finding. IMPRESSION: NO HEMODYNAMICALLY SIGNIFICANT STENOSIS. COMMENT: Quality ID #[id number]: Velocity criteria are extrapolated from the diameter data as defined by t he Society of Radiologists in Ultrasound Consensus Conference. Radiology 2003: 229; 340-346. TECHNICAL DOCUMENTATION: JOB ID: [id number] 2010 [employer]- All Rights Reserved Reading location - IP/workstation name: [email or web address]
--- NOTE | 2020-09-24 13:30 | EKG REPORT ---
SEVERITY:- ABNORMAL ECG - SINUS TACHYCARDIA MULTIPLE VENTRICULAR PREMATURE COMPLEXES FIRST DEGREE AV BLOCK BORDERLINE LEFT AXIS DEVIATION : Confirmed by: Mahamed Felder 24-Sep-2020 13:28:55
--- NOTE | 2020-09-24 13:30 | EKG REPORT ---
SEVERITY:- ABNORMAL ECG - SINUS RHYTHM LEFT ANTERIOR FASCICULAR BLOCK CONSIDER RIGHT VENTRICULAR HYPERTROPHY BORDERLINE PROLONGED QT INTERVAL : Confirmed by: Mahamed Felder 24-Sep-2020 13:28:46
[2020-09-24] MEDS ORDERED: LEVOTHYROXINE SODIUM INJ/PF 0.1 MG SDV IV ONE (15:30)
--- NOTE | 2020-09-24 16:13 | PDOC DISCHARGE SUMMARY ---
Impression - Admit/DC Date/PCP Admission Date/Primary Care Provider: 09/23/20 20:34 HARDEEP LUCAS PA-C Discharge Date: 09/24/20 - Discharge Diagnosis (1) Primary hypothyroidism Is this a current diagnosis for this admission?: Yes (2) Acute metabolic encephalopathy Is this a current diagnosis for this admission?: Yes (3) Cerebral atrophy Is this a current diagnosis for this admission?: Yes (4) Chronic obstructive pulmonary disease with bronchospasm Is this a current diagnosis for this admission?: Yes (5) Hyperlipidemia Is this a current diagnosis for this admission?: Yes (6) Hypertension Is this a current diagnosis for this admission?: Yes - Additional Information Discharge Diet: Cardiac Discharge Activity: Activity As Tolerated [facility]: [facility]] - Follow up as needed Prescriptions: Aspirin [Ecotrin 81 mg EC Tablet] 81 mg PO DAILY #30 tabec Atorvastatin Calcium [Lipitor 40 mg Tablet] 40 mg PO QHS #30 tablet Amlodipine Besylate [Norvasc 5 mg Tablet] 5 mg PO DAILY #30 tablet Albuterol Sulfate [Proair HFA Inhalation Aerosol 8.5 gm MDI] 2 puff IH Q6HP PRN #1 inhaler PRN Reason: Levothyroxine Sodium [Synthroid 0.025 mg Tablet] 0.025 mg PO Q6AM #30 tablet Levothyroxine Sodium [Synthroid 0.112 mg Tablet] 0.112 mg PO Q6AM #30 tablet Albuterol Sulfate [Ventolin 0.083% Neb 2.5 mg/3 mL Ampul] 2.5 mg NEB Q6HP PRN #30 vial.neb PRN Reason: Home Medications: Albuterol Sulfate [Proair HFA Inhalation Aerosol 8.5 gm MDI] 2 puff IH Q6HP PRN #1 inhaler 09/24/20 Albuterol Sulfate [Ventolin 0.083% Neb 2.5 mg/3 mL Ampul] 2.5 mg NEB Q6HP PRN #30 vial.neb 09/24/20 Amlodipine Besylate [Norvasc 5 mg Tablet] 5 mg PO DAILY #30 tablet 09/24/20 Aspirin [Ecotrin 81 mg EC Tablet] 81 mg PO DAILY #30 tabec 09/24/20 Atorvastatin Calcium [Lipitor 40 mg Tablet] 40 mg PO QHS #30 tablet 09/24/20 Ipratropium [place] [Atrovent 0.02% Neb 0.5 mg/2.5 ml Ampul] 0.5 mg NEB BID 09/24/20 Levothyroxine Sodium [Synthroid 0.025 mg Tablet] 0.025 mg PO Q6AM #30 tablet 09/24/20 Levothyroxine Sodium [Synthroid 0.112 mg Tablet] 0.112 mg PO Q6AM #30 tablet 09/24/20 History of Present Illiness History of Present Illness: According to admitting provider: JOSE MERA is a 65 year old male The patient does not have any documented history of CVA or TIA. About a year or year and a half ago the patient had a similar episode what happened today but at that time he did not seek medical attention. He was doing well till around noon when his family noticed his speech became abnormal and he is not acting right. He seemed to be confused with significant speech difficulty. He was able to walk. Eventually came to the emergency department. His symptoms were rapidly improving and by the time he was evaluated they almost completely resolved. The diagnosis was unclear, he was not a candidate for thrombolytic treatment. His work-up in the emergency department was essentially unremarkable. When I arrived to see him he was fully alert, oriented. He appeared very slightly confused which can be even a normal variant. His speech was normal. According to his son he was still not completely back to his baseline. Denies any headache. His only complaint was his chronic back pain. He was cooperative, pleasant. Hospital Course Hospital Course: Patient presented with sort of metabolic encephalopathy described as confusion, mumbling and difficulty having conversation. It seems that patient was suspected to be having strokelike symptoms on initial presentation. He was mildly hypertensive. Blood work was performed. Lipid panel reveals hyperlipide guillermina with LDL over 160s. CT head was done which was unremarkable. Carotid Doppler showed no significant hemodynamic stenosis. Echocardiogram not yet resulted at time of discharge and patient will follow up with the result. MRI of the brain shows no evidence of acute stroke but does show findings suggestive of cerebral atrophy. On my neurological assessment, patient does not seem to have any cognitive impairment but he does endorse some history of memory lapses though seems to be mild at best. His blood work has revealed findings suggestive of moderately severe primary hypothyroidism. He has not taking his Synthroid in the past several months. Is very possible that this may have actually been what precipitated his neurological symptoms. He seems to be back at baseline in terms of his encephalopathy. Another differential would be TIA. Patient has been started on thyroid replacement therapy and given a dose of levothyroxine IV 0.1 mg today and will be discharged home on p.o. Synthroid 0.137 mg daily with instructions to repeat thyroid function testing 4 to 6 weeks with PCP. He has also been started on atorvastatin given his elevated LDL as well as baby aspirin. He has been started on antihypertensive medication. He was also noted to be wheezing today and received a breathing treatment after which he felt a lot better. He states he has a nebulizer at home for his COPD and I will discharge him with prescription for albuterol solution as well as refill of his albuterol inhaler. He does not require prednisone or steroids at this point. I did perform an ambulatory pulse ox with him just prior to departure and he saturated at 91 to 93% on room air on ambulation. He has been evaluated and cleared by PT. I have attempted to call patient's son multiple times to brief him but he is not picking up his phone and his voicemail is full. Physical Exam Vital Signs: Temp Pulse Resp BP Pulse Ox 98.0 F 90 16 143/94 H 93 09/24/20 12:17 09/24/20 12:26 09/24/20 12:26 09/24/20 12:17 09/24/20 12:26 Intake & Output 09/23/20 09/24/20 09/25/20 06:59 06:59 06:59 Output Total 200 Balance -200 Weight 87.3 kg General appearance: PRESENT: no acute distress, cooperative Eye exam: PRESENT: EOMI, PERRLA. ABSENT: nystagmus Respiratory exam: PRESENT: symmetrical, unlabored, wheezes. ABSENT: accessory muscle use, retraction, tachypnea Cardiovascular exam: PRESENT: RRR, +S1, +S2, tachycardia - MILD GI/Abdominal exam: PRESENT: soft. ABSENT: rebound, rigid, tenderness Extremities exam: ABSENT: pedal edema Musculoskeletal exam: PRESENT: ambulatory Neurological exam: PRESENT: alert, awake, oriented to person, oriented to place, oriented to time, oriented to situation, CN II-XII grossly intact. ABSENT: abnormal gait, ataxia, motor sensory deficit, aphasic Psychiatric exam: ABSENT: agitated, anxious Results Laboratory Results: WBC 6.2 10^3/uL (4.0-10.5) 09/24/20 03:43 RBC 4.86 10^6/uL (4.35-5.55) 09/24/20 03:43 Hgb 14.8 g/dL (13.5-17.0) 09/24/20 03:43 Hct 43.2 % (37.9-51.0) 09/24/20 03:43 MCV 89 fl (80-97) 09/24/20 03:43 MCH 30.4 pg (27.0-33.4) 09/24/20 03:43 MCHC 34.2 g/dL (32.0-36.0) 09/24/20 03:43 RDW 13.6 % (11.5-14.0) 09/24/20 03:43 Plt Count 177 10^3/uL (150-450) 09/24/20 03:43 Lymph % (Auto) 28.6 % (13-45) 09/24/20 03:43 [place] % (Auto) 10.9 % (3-13) 09/24/20 03:43 Eos % (Auto) 5.3 % (0-6) 09/24/20 03:43 Baso % (Auto) 0.7 % (0-2) 09/24/20 03:43 Absolute Neuts (auto) 3.4 10^3/uL (1.7-8.2) 09/24/20 03:43 Absolute Lymphs (auto) 1.8 10^3/uL (0.5-4.7) 09/24/20 03:43 Absolute Monos (auto) 0.7 10^3/uL (0.1-1.4) 09/24/20 03:43 Absolute Eos (auto) 0.3 10^3/uL (0.0-0.6) 09/24/20 03:43 Absolute Basos (auto) 0.0 10^3/uL (0.0-0.2) 09/24/20 03:43 Seg Neutrophils % 54.5 % (42-78) 09/24/20 03:43 PT 12.4 SEC (11.4-15.4) 09/23/20 17:30 INR 0.90 09/23/20 17:30 APTT 26.7 SEC (23.5-35.8) 09/23/20 17:30 Sodium 139.4 mmol/L (137-145) 09/24/20 03:43 Potassium 4.1 mmol/L (3.6-5.0) 09/24/20 03:43 Chloride 104 mmol/L (98-107) 09/24/20 03:43 Carbon Dioxide 27 mmol/L (22-30) 09/24/20 03:43 Anion Gap 8 (5-19) 09/24/20 03:43 BUN 12 mg/dL (7-20) 09/24/20 03:43 Creatinine 0.82 mg/dL (0.52-1.25) 09/24/20 03:43 Est GFR ( Amer) > 60 (>60) 09/24/20 03:43 Est GFR (MDRD) Non-Af > 60 (>60) 09/24/20 03:43 Glucose 106 mg/dL (75-110) 09/24/20 03:43 Hemoglobin A1c % 4.8 % (4.7-6.0) 09/24/20 03:43 Calcium 9.2 mg/dL (8.4-10.2) 09/24/20 03:43 Total Bilirubin 0.9 mg/dL (0.2-1.3) 09/24/20 03:43 Direct Bilirubin 0.1 mg/dL (0.0-0.4) 09/24/20 03:43 Neonat Total Bilirubin Not Reportable 09/24/20 03:43 Neonat Direct Bilirubin Not Reportable 09/24/20 03:43 Neonat Indirect Bili Not Reportable 09/24/20 03:43 AST 28 U/L (17-59) 09/24/20 03:43 ALT 26 U/L (<50) 09/24/20 03:43 Alkaline Phosphatase 80 U/L (38-126) 09/24/20 03:43 Creatine Kinase 150 U/L (55-170) 09/23/20 17:30 CK-MB (CK-2) 6.45 ng/mL (<4.55) H 09/23/20 17:30 Troponin I < 0.012 ng/mL 09/24/20 09:13 Total Protein 7.5 g/dL (6.3-8.2) 09/24/20 03:43 Albumin 4.3 g/dL (3.5-5.0) 09/24/20 03:43 Triglycerides 129 mg/dL (<150) 09/24/20 03:43 Cholesterol 228.13 mg/dL (0-200) H 09/24/20 03:43 LDL Cholesterol Direct 168 mg/dL (<100) H 09/24/20 03:43 VLDL Cholesterol 26.0 mg/dL (10-31) 09/24/20 03:43 HDL Cholesterol 43 mg/dL (>40) 09/24/20 03:43 TSH 61.70 uIU/mL (0.47-4.68) H 09/24/20 03:43 Free T4 0.36 ng/dL (0.78-2.19) L 09/24/20 03:43 Free T3 pg/mL 3.02 pg/mL (2.77-5.27) 09/24/20 03:43 Urine Color YELLOW 09/23/20 18:27 Urine Appearance CLEAR 09/23/20 18:27 Urine pH 6.0 (5.0-9.0) 09/23/20 18:27 Ur Specific [place] 1.015 09/23/20 18:27 Urine Protein NEGATIVE mg/dL (NEGATIVE) 09/23/20 18:27 Urine Glucose (UA) NEGATIVE mg/dL (NEGATIVE) 09/23/20 18:27 Urine Ketones NEGATIVE mg/dL (NEGATIVE) 09/23/20 18:27 Urine Blood NEGATIVE (NEGATIVE) 09/23/20 18:27 Urine Nitrite NEGATIVE (NEGATIVE) 09/23/20 18:27 Urine Bilirubin NEGATIVE (NEGATIVE) 09/23/20 18:27 Urine Urobilinogen NEGATIVE mg/dL (<2.0) 09/23/20 18:27 Ur Leukocyte Esterase NEGATIVE (NEGATIVE) 09/23/20 18:27 Urine WBC (Auto) 0 /HPF 09/23/20 18:27 Urine RBC (Auto) 1 /HPF 09/23/20 18:27 Urine Mucus (Auto) RARE /LPF 09/23/20 18:27 Urine Ascorbic Acid NEGATIVE (NEGATIVE) 09/23/20 18:27 Urine Opiates Screen NEGATIVE 09/24/20 01:15 Urine Methadone Screen NEGATIVE 09/24/20 01:15 Ur Barbiturates Screen NEGATIVE 09/24/20 01:15 Ur Phencyclidine Scrn NEGATIVE 09/24/20 01:15 Ur Amphetamines Screen NEGATIVE 09/24/20 01:15 U Benzodiazepines Scrn NEGATIVE 09/24/20 01:15 Urine Cocaine Screen NEGATIVE 09/24/20 01:15 U Marijuana (THC) Screen UNCONFIRMED POSITIVE 09/24/20 01:15 Group A Strep Rapid NEGATIVE (NEGATIVE) 09/23/20 17:47 09/23/20 09/23/20 09/24/20 17:30 21:27 03:43 CK-MB (CK-2) 6.45 H Troponin I < 0.012 0.015 < 0.012 09/24/20 09:13 CK-MB (CK-2) Troponin I < 0.012 Impressions: Head MRI 09/23/20 00:00 IMPRESSION: 1. No acute intracranial process is seen. 2. Mild cerebral atrophy and periventricular white matter changes are seen. 3. There are punctate areas of scattered susceptibility. This can be seen with amyloid angiopathy, less likely cavernous malformations or trauma. Chest X-Ray 09/23/20 17:08 IMPRESSION: NO ACUTE RADIOGRAPHIC FINDING IN THE CHEST. Head CT 09/23/20 17:08 IMPRESSION: Chronic microvascular ischemia with no acute intracranial imaging finding. Mild left maxillary sinus disease. EVIDENCE OF ACUTE STROKE: NO. Carotid Doppler Study 09/24/20 00:00 IMPRESSION: NO HEMODYNAMICALLY SIGNIFICANT STENOSIS. Plan Time Spent: Greater than 30 Minutes Stroke Is this a Stroke Patient?: No Acute Heart Failure Is this a Heart Failure Patient?: No
[2020-09-24 17:21] VITALS: BP 151/102
[2020-09-25] MEDS ORDERED: LEVOTHYROXINE SODIUM 0.112 MG TABLET PO SCH (06:00)
[2020-09-25] MEDS ORDERED: LEVOTHYROXINE SODIUM 0.025 MG TABLET PO SCH (06:00)
[2020-09-25] MEDS ORDERED: INFLUENZA QUAD (6MOS+) 2020-21 VAC 0.5 ML SYR IM ONE (08:00)
--- NOTE | 2020-09-26 18:33 | XCELERA REPORT ---
[address] [address] Transthoracic Echocardiogram Report Name: JOSE MERA Age: 65 yrs Gender: Male : 1955 Patient Status: Inpatient Patient Location: [address] [place] [address] Study Date: 09/24/2020 10:14 AM Height: 69 in Weight: 194 lb BSA: 2.0 m2 Procedure: A two-dimensional transthoracic echocardiogram with color flow and Doppler was performed. The study was technically difficult with many images being suboptimal in quality. Images were not obtained from all of the standard acoustic windows due to the limited scope of the study. Reason For Study: TIA / CVA History: TIA / CVA. Ordering Physician: FERNANDO HOLLOWAY Interpretation Summary The left ventricle is normal in size. There is normal left ventricular wall thickness. LV EF is 40% to 45% Left ventricular systolic function is moderately reduced. LV diastolic function could not be adequately assessed. There is moderate global hypokinesis of the left ventricle. There is no thrombus. Cannot assess ASD,VSD or PFO. The right ventricular apex is not well visualized. Right atrium not well visualized secondary to technical limitations The left atrial size is normal. There is no vegetation seen on the mitral valve. There is no mitral valve stenosis. There is a trace amount of mitral regurgitation There is aortic sclerosis without aortic stenosis. There is no tricuspid stenosis. There is a trace amount of tricuspid regurgitation Right ventricular systolic pressure is at the upper limits of normal RVSP is 30 mm of HG , with RA mean of 10. There is no pulmonic valvular stenosis. The aortic root is not well visualized but is probably normal size. The inferior vena cava was not visualized There is no pericardial effusion. MMode/2D Measurements & Calculations RVDd: 2.2 cm LVIDd: 5.5 cm FS: 22.5 % Ao root diam: IVSd: 1.2 cm LVIDs: 4.3 cm EDV(Teich): 3.4 cm 147.4 ml Ao root area: LVPWd: 0.96 cm ESV(Teich): 9.2 cm2 81.3 ml EF(Teich): 44.8 % EDV(MOD-sp4): SV(MOD-sp4): 105.8 ml 47.2 ml ESV(MOD-sp4): 58.6 ml EF(MOD-sp4): 44.6 % Doppler Measurements & Calculations MV E max rosalinda: MV dec slope: Ao V2 max: LV V1 max P.7 cm/sec 145.4 cm/sec 3.1 mmHg MV A max rosalinda: 800.0 cm/sec2 Ao max P.5 mmHgLV V1 max: 35.2 cm/sec MV dec time: 0.13 sec 88.3 cm/sec MV E/A: 2.9 PA V2 max: PI end-d rosalinda: TR max rosalinda: 69.9 cm/sec 101.6 cm/sec 224.4 cm/sec PA max P.0 mmHg TR max P.1 mmHg Left Ventricle The left ventricle is normal in size. There is normal left ventricular wall thickness. LV EF is 40% to 45%. Left ventricular systolic function is moderately reduced. LV diastolic function could not be adequately assessed. There is moderate global hypokinesis of the left ventricle. There is no thrombus. Cannot assess ASD,VSD or PFO. Right Ventricle The right ventricular apex is not well visualized. Atria Right atrium not well visualized secondary to technical limitations. The left atrial size is normal. Mitral Valve There is no evidence of mitral valve prolapse. There is no vegetation seen on the mitral valve. There is no mitral valve stenosis. There is a trace amount of mitral regurgitation. Aortic Valve There is no aortic valvular vegetation. There is no aortic valve stenosis. There is aortic sclerosis without aortic stenosis. No aortic regurgitation is present. Tricuspid Valve The tricuspid is normal in structure and function. There is no tricuspid stenosis. There is a trace amount of tricuspid regurgitation. Right ventricular systolic pressure is at the upper limits of normal. RVSP is 30 mm of HG , with RA mean of 10. Pulmonic Valve The pulmonic valve is not well visualized. There is no pulmonic valvular stenosis. There is a trace amount of pulmonic regurgitation. Great Vessels The aortic root is not well visualized but is probably normal size. The inferior vena cava was not visualized. Effusions There is no pericardial effusion. : FERNANDO HOLLOWAY Lakshmi
== END 2020-09-24 17:08 | disposition home or self-care (01) ==
LOC: ER 16:54 → EH 20:34 → 3S 09-24 01:05
PROVIDERS: ADMIT Internal Medicine; ATTEND Internal Medicine
DX: E03.8 Other specified hypothyroidism (principal); G93.41 Metabolic encephalopathy; G31.9 Degenerative disease of nervous system, unspecified; J44.9 Chronic obstructive pulmonary disease, unspecified; E78.5 Hyperlipidemia, unspecified; I10 Essential (primary) hypertension; R41.0 Disorientation, unspecified; I25.810 Atherosclerosis of coronary artery bypass graft(s) without angina pectoris; R29.700 NIHSS score 0; Z87.891 Personal history of nicotine dependence; Z79.899 Other long term (current) drug therapy
CPT/HCPCS: 93005 ×2; 99285; 36415 ×2; 87070; 84439; 82553; 87880; 82550; 84443; 85025 ×2; 85610; 85730; 80053 ×2; 81001; 84484 ×2; 80307; 84481; 83036; 80061; 93306; 93880; 70551; 71045; 70450; 93010 ×2; 94640; 97161; 92610; 97165; G0378 ×3; J3490 ×2